=== PATIENT | female | born 1975 | race Caucasian/White ===

== ENCOUNTER 2020-03-01 02:03 | Emergency (ER) | payer SELFPAY ==
[2020-03-01 02:14] VITALS: BP 184/118; PULSE 96; RESP 22; TEMP 36.1; O2SAT 98; BMI 36.6
--- NOTE | 2020-03-01 02:23 | XR_ITS ---
EXAMINATION: XR KNEE, LEFT CLINICAL INFORMATION: Acute injury. Hyperextension. COMPARISON: None TECHNIQUE: Four views of the left knee. FINDINGS: No fracture or subluxation. Compartmental joint spaces are maintained. No joint effusion. The soft tissues are unremarkable. XR/XR knee LT 4V IMPRESSION: Normal left knee.
[2020-03-01 02:37] VITALS: RESP 18
[2020-03-01] MEDS: fentaNYL citrate/PF 100 MCG/2 ML VIAL 12.5 MCG IVPUSH (02:37)
[2020-03-01] MEDS: Acetaminophen 325 MG TABLET 975 MG PO (02:38)
--- NOTE | 2020-03-01 02:44 | ED.LOWEXIN ---
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 She denies any pain/numbness/ tingling distal to the knee and states that it is all behind the knee. Related Data Previous Rx's Medication Instructions Recorded ketorolac 10 mg PO Q6H PRN 5 Days #20 tab 03/01/20 Allergies Allergy/AdvReac Type Severity Reaction Status Date / Time gabapentin Allergy Unknown Verified 03/01/20 02:22 Iodine and Iodide Containing Allergy Anaphylaxis Verified 03/01/20 02:22 Produc nifedipine Allergy Anaphylaxis Verified 03/01/20 02:22 Review of Systems Review of Systems: Pertinent positives and negatives as stated in HPI 10 point review of systems is otherwise negative. PMFSH Past Medical History Source: nursing notes reviewed Medical History Back pain with history of spinal surgery Broken leg Spinal cord stimulator status Social History Social History Advance Directives: No Advance Directives Information Provided: Yes Physical Exam Vital Signs: Vital Signs: Vital Signs Temp Pulse Resp BP Pulse Ox 03/01/20 02:37 18 03/01/20 02:14 97.0 F 96 22 H 184/118 H 98 Body Mass Index 36.6 VITAL SIGNS: Reviewed. GENERAL: Well developed, well nourished, in no acute distress. HEAD: Normocephalic/atraumatic, EYES: PERRLA, EOMI intact without pain, no nystagmus/pallor/icterus noted EARS: Ext canals without abnormality, TMs non-bulging and non-erythematous NOSE: Nares patent bilateral OROPHARYNX: no oral lesions noted, posterior pharynx clear and non-erythematous without noted tonsillar enlargement/erythema/exudates NECK: Supple, no adenopathy LUNGS: Normal breath sounds. No adventitious sounds or accessory muscle use. SpO2<98> CARDIOVASCULAR: Regular rate and rhythm without noted murmurs, no JVD or lower extremity edema. ABDOMEN: Soft, non-tender, non-distended with bowel sounds. No rigidity. No guarding. No palpable masses or hernias noted MUSCULOSKELETAL: No tenderness, deformities, or effusions noted on gross inspection. EXTREMITIES: No cyanosis, clubbing or edema; LLE: No fluctuance noted at the posterior knee and no effusion noted on the anterior aspect, palpation induces pain at the proximal aspect of the gastrocs and increased pain on dorsiflexion of left foot, capillary refill less than 3 seconds, neurovascularly intact distally with good DP/ PT pulses. SKIN: Inspection of the skin reveals no rashes, ulcerations, jaundice, pallor, or petechiae. NEUROLOGIC: Alert and oriented x 4. Strength and sensation to light touch were grossly intact x 4. Course Course Course Narrative: This is a 44-year-old female with history and clinical presentation most consistent with possible PCL rupture versus meniscal injury versus Kim cyst rupture and less likely knee dislocation. On review of imaging studies there is no evidence of acute knee dislocation or bony abnormalities and no evidence of acute effusion. Patient's pain has improved considerably with provided pain control and results were discussed with her at bedside. She will be discharged with a knee immobilizer as well as crutches and instructions to follow-up with [facility] (with whom she has been evaluated previously ) on Monday morning and will be out of work until evaluated by Orthopedics. Discharge Plan Discharge Clinical Impression: Injury of knee, left Qualifiers: Encounter type: initial encounter Qualified Code(s): S89.92XA - Unspecified injury of left lower leg, initial encounter Patient Disposition: Home, Self-Care Instructions: Crutch Instructions (ED), Knee Pain (ED), Knee Immobilizer (ED) Additional Instructions: 1. Tylenol 1000 mg, orally, every 6 hours as needed for pain control. Do not exceed 4000 mg within 24 hours. Please remember to include any other medication that also contains Tylenol/acetaminophen. 2. Apply ice, 10-15 minutes, 3 to 4 times a day, do not apply ice directly to skin. 3. When using crutches remember toe-touch only for the left lower extremity, do not weight bear. The patient and/or family acknowledge understanding of results (as applicable), diagnosis, treatment plan, need for follow up, and symptoms that should prompt a return to the emergency room. Prescriptions: New ketorolac 10 mg tablet 10 mg PO Q6H PRN (Reason: pain) 5 Days Qty: 20 RF: 0 Referrals: Ricky Vila MD [Physician] - 2 days ( left knee injury at work, suspect possible PCL versus meniscal)
[2020-03-01] MEDS: HYDROmorphone HCl 0.5 MG/0.5 ML SYRINGE 0.25 MG IVPUSH (03:20)
== END 2020-03-01 04:14 | disposition home or self-care (01) ==
PROVIDERS: Emergency Provider Student in an Organized Health Care Education/Training Program
DX: S89.92XA Unspecified injury of left lower leg, initial encounter (principal); M79.605 Pain in left leg; W01.0XXA Fall on same level from slipping, tripping and stumbling without subsequent striking against object, initial encounter; Y93.9 Activity, unspecified; Y92.9 Unspecified place or not applicable; Y99.9 Unspecified external cause status; Z79.899 Other long term (current) drug therapy
CPT/HCPCS: 73564; 96374; 96375; 99283; 99284; J1170; J3010

== ENCOUNTER 2020-05-21 15:41 | Emergency (ER) | payer OTHER, SELFPAY ==
--- NOTE | 2020-05-21 15:55 | XR_ITS ---
EXAMINATION: XR SHOULDER, RIGHT CLINICAL INFORMATION: Following injury, pain COMPARISON: None TECHNIQUE: Right shoulder is imaged in 3 views. FINDINGS: There is no fracture, dislocation, destructive process. The glenohumeral joint is normal. The acromioclavicular alignment is normal. External rotation view shows 2 punctate faint calcifications adjacent to the greater tuberosity consistent with calcific tendinosis. There is plate and screws lower cervical spine consistent with prior anterior cervical fusion. There are spinal stimulator leads seen mid thoracic spine. Right lung apex clear. XR/XR shoulder RT min 2V IMPRESSION: 1. No fracture or dislocation. Acromioclavicular alignment normal. 2. Punctate calcific tendinosis distal superior rotator cuff.
--- NOTE | 2020-05-21 15:55 | XR_ITS ---
EXAMINATION: XR HAND, RIGHT CLINICAL INFORMATION: Crush injury, tender first, second, third metacarpal. COMPARISON: None TECHNIQUE: PA, lateral, and oblique views of the right hand. FINDINGS: The trapezium carpal bone is absent, possibly resected previously. There is circumscribed cyst base first metacarpal measuring approximately 0.7 x 0.8 cm. No matrix mineralization. There is no fracture or dislocation or destructive process. No joint narrowing or erosive change. XR/XR hand RT min 3V IMPRESSION: 1. No fracture or dislocation or destructive process. 2. Trapezium carpal bone absent. Benign-appearing cyst base first metacarpal.
[2020-05-21 16:02] VITALS: BP 150/85; PULSE 93; RESP 16; TEMP 36.6; O2SAT 97; BMI 36.6
[2020-05-21] MEDS: Ibuprofen 600 MG TABLET PO (16:10)
[2020-05-21] MEDS: Acetaminophen 325 MG TABLET 975 MG PO (16:10)
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
== END 2020-05-21 17:26 | disposition home or self-care (01) ==
PROVIDERS: Emergency Provider Emergency Medicine Emergency Medical Services
DX: S43.101A Unspecified dislocation of right acromioclavicular joint, initial encounter (principal); S60.221A Contusion of right hand, initial encounter; M25.511 Pain in right shoulder; M79.641 Pain in right hand; X50.0XXA Overexertion from strenuous movement or load, initial encounter; X50.1XXA Overexertion from prolonged static or awkward postures, initial encounter; Y93.9 Activity, unspecified; Y92.9 Unspecified place or not applicable; Y99.0 Civilian activity done for income or pay; Z79.899 Other long term (current) drug therapy
CPT/HCPCS: 73030; 73130; 99283

== ENCOUNTER → 2020-05-27 14:02 | Outpatient (BNVA) | payer OTHER, SELFPAY | PROVIDERS: Visit Provider Internal Medicine | DX: S49.91XA Unspecified injury of right shoulder and upper arm, initial encounter (principal); X50.0XXA Overexertion from strenuous movement or load, initial encounter; W31.9XXA Contact with unspecified machinery, initial encounter | CPT/HCPCS: 99201 ==

== ENCOUNTER 2021-04-20 18:27 | Emergency (ER) | payer OTHER, SELFPAY ==
--- NOTE | ~2021-04-20 | XR_ITS ---
EXAMINATION: XR CERVICAL SPINE CLINICAL INFORMATION: Trauma to the throat. COMPARISON: None TECHNIQUE: 4 views of the cervical spine were obtained. FINDINGS: Anterior fusion hardware at C6-C7 is intact. No acute cervical spinal fracture or malalignment. The atlantooccipital and atlantoaxial articulations are maintained. Mild cervical spondylosis. No prevertebral soft tissue thickening. No unexpected radiopaque foreign bodies. Visualized lung apices are within normal limits. XR/XR cervical spine 3V IMPRESSION: Intact anterior fusion hardware at C6-C7. No acute cervical fractures or malalignment. If clinical concern for trauma to the hyoid or laryngeal cartilages, recommend correlation with a CT of the soft tissues of the neck.
[2021-04-20 18:32] VITALS: BP 178/110; PULSE 82; RESP 16; TEMP 36.9; BMI 36.9
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
[2021-04-20 19:41] VITALS: BP 164/94; PULSE 77; O2SAT 99
== END 2021-04-20 19:43 | disposition home or self-care (01) ==
PROVIDERS: Emergency Provider Emergency Medicine; PCP Physician Assistant
DX: S19.9XXA Unspecified injury of neck, initial encounter (principal); Y04.0XXA Assault by unarmed brawl or fight, initial encounter; Y93.9 Activity, unspecified; Y92.9 Unspecified place or not applicable; Y99.0 Civilian activity done for income or pay
CPT/HCPCS: 72040; 99283; 99284